=== PATIENT | female | born 1960 | race African-American/Black ===

== ENCOUNTER 2016-08-23 17:16 | Emergency (ER) | payer MEDICARE, MEDICAID ==
[~2016-08-23] VITALS: Ht 170.2 cm; Wt 70.0 kg
[2016-08-23 17:20] VITALS: BP 156/99
== END 2016-08-23 19:31 | disposition left against medical advice (07) ==
LOC: ER 17:17
DX: R05 Cough (principal); Z53.21 Procedure and treatment not carried out due to patient leaving prior to being seen by health care provider